=== PATIENT | male | born 1995 | race Hispanic/Latino ===

== ENCOUNTER 2022-03-09 05:10 | Emergency (ER) | payer BC, MEDICAID ==
[2022-03-09] MEDS ORDERED: HYDROcodone/Acetaminophen 10/325 mg Tablet ONE (05:50)
== END 2022-03-09 06:11 | disposition home or self-care (01) ==
LOC: ERS 05:10
DX: H66.43 Suppurative otitis media, unspecified, bilateral (principal)
CPT/HCPCS: 99282